=== PATIENT | male | born 1960 | race Caucasian/White ===

== ENCOUNTER 2023-07-10 14:29 | Inpatient (IN) | payer MEDICARE ==
[~2023-07-10] VITALS: Ht 182.9 cm; Wt 95.4 kg
[2023-07-10] VITALS (61 sets, daily range): BP systolic 64–150; BP diastolic 41–94
[2023-07-10 15:50] LABS: BASO% 0.2 % (0-3); EOS% 0.2 % (0-8); HEMATOCRIT 45.4 % (39.0-50.0); HEMOGLOBIN 14.5 g/dl (14.0-18.0); IMMATURE GRANULOCYTES 0.4 % (0.0-5.0); LYMPH% 3.4 % (15-41); MEAN CELL VOLUME 98.1 fL CALC (80.0-100.0); MEAN CORPUSCULAR HGB 31.3 pG CALC (26.0-32.0); MEAN CORPUSCULAR HGB CONC 31.9 g/dL CAL (32.0-36.0); MONO% 2.4 % (2-13); NEUT# 4.72 thou/uL (1.82-7.42); NEUT% 93.4 % (42-76); RED BLOOD COUNT 4.63 mill/uL (4.70-6.10); RED CELL DISTRI WIDTH 14.7 % (11.5-15.5)
[2023-07-10 16:02] LABS: BILIRUBIN, TOTAL 0.9 mg/dL (0.2-1.3); POTASSIUM 3.8 mmol/l (3.5-5.1)
[2023-07-10 16:04] LABS: ALBUMIN 2.9 g/dL (3.2-5.0)
[2023-07-10 16:15] LABS: INTERNATIONAL NORMALIZED RATIO 2.4 RATIO (0.7-1.3); PROTHROMBIN TIME 22.5 SECONDS (9.0-12.5)
[2023-07-10 18:08] LABS: URINE BILIRUBIN - DIPSTICK Negative (NEGATIVE); URINE BLOOD DIPSTICK Small (NEGATIVE); URINE GLUCOSE - DIPSTICK Negative (NEGATIVE); URINE KETONE Negative (NEGATIVE); URINE LEUK ESTERASE Negative (NEGATIVE); URINE NITRITE - DIPSTICK Negative (Negative); URINE PH 5.5 (4.5-8.0); URINE PROTEIN - DIPSTICK 30 mg/dL (NEG-TRACE); URINE SPECIFIC GRAVITY 1.015; URINE UROBILINOGEN - DIPSTICK 0.2 E.U./dL (0.2)
[2023-07-10 18:17] LABS: URINE COLOR Yellow
[2023-07-10 18:39] LABS: URINE AMORPH SEDIMENT FEW hpf (NONE-FER)
[2023-07-10] MEDS ORDERED: CARAFATE1 GM PO (19:20)
[2023-07-10] MEDS ORDERED: KEVZARA200 MG/1.2 (19:20)
[2023-07-10] MEDS ORDERED: WARFARIN SODIUM10 MG PO (19:22)
[2023-07-10] MEDS ORDERED: LOPRESSOR25 M1 PO (19:22)
[2023-07-10] MEDS ORDERED: SERTRALINE50 MG PO (19:22)
[2023-07-10] MEDS ORDERED: WARFARIN SODIUM1 MG PO (19:23)
[2023-07-10] MEDS ORDERED: ATORVASTATIN CA80 MG PO (19:23)
[2023-07-10] MEDS ORDERED: POTASSIUM CHLO20 MEQ PO (19:24)
[2023-07-10] MEDS ORDERED: PANTOPRAZOLE SO40 M1 PO (19:24)
[2023-07-10] MEDS ORDERED: ALDACTONE25 MG PO (19:24)
[2023-07-10] MEDS ORDERED: PREDNISONE10 MG PO (19:26)
[2023-07-10] MEDS ORDERED: BUMETANIDE1 MG PO (19:28)
[2023-07-10] MEDS ORDERED: LASIX 40 MG TAB40 MG PO (19:29)
[2023-07-10] MEDS ORDERED: PHILLIPS MOM311 MG PO (19:30)
[2023-07-10] MEDS ORDERED: MELATONIN3 M1 PO (19:31)
[2023-07-11] VITALS (114 sets, daily range): BP systolic 73–118; BP diastolic 37–78
[2023-07-11 07:01] LABS: BILIRUBIN, TOTAL 0.8 mg/dL (0.2-1.3); CREATININE 1.8 mg/dL (0.7-1.3); MAGNESIUM 1.9 mg/dL (1.6-2.3)
[2023-07-11 07:02] LABS: MEAN CELL VOLUME 97.7 fL CALC (80.0-100.0); MEAN CORPUSCULAR HGB 31.7 pG CALC (26.0-32.0); MEAN CORPUSCULAR HGB CONC 32.4 g/dL CAL (32.0-36.0); RED BLOOD COUNT 3.85 mill/uL (4.70-6.10)
[2023-07-11 07:04] LABS: HEMATOCRIT 37.6 % (39.0-50.0); HEMOGLOBIN 12.2 g/dl (14.0-18.0)
[2023-07-11 07:10] LABS: ALBUMIN 1.9 g/dL (3.2-5.0); POTASSIUM 2.8 mmol/l (3.5-5.1); TOTAL PROTEIN 5.1 g/dL (6.3-8.2)
[2023-07-11 07:13] LABS: PROTHROMBIN TIME 44.6 SECONDS (9.0-12.5)
[2023-07-12] VITALS (74 sets, daily range): BP systolic 80–143; BP diastolic 47–109
[2023-07-12 05:58] LABS: HEMATOCRIT 32.8 % (39.0-50.0); HEMOGLOBIN 10.6 g/dl (14.0-18.0); MEAN CELL VOLUME 98.8 fL CALC (80.0-100.0); MEAN CORPUSCULAR HGB 31.9 pG CALC (26.0-32.0); MEAN CORPUSCULAR HGB CONC 32.3 g/dL CAL (32.0-36.0); RED BLOOD COUNT 3.32 mill/uL (4.70-6.10); RED CELL DISTRI WIDTH 15.3 % (11.5-15.5)
[2023-07-12 06:32] LABS: ALBUMIN 1.7 g/dL (3.2-5.0); CREATININE 1.8 mg/dL (0.7-1.3); POTASSIUM 2.8 mmol/l (3.5-5.1); TOTAL PROTEIN 4.6 g/dL (6.3-8.2)
[2023-07-12 06:39] LABS: INTERNATIONAL NORMALIZED RATIO 12.7 RATIO (0.7-1.3); PROTHROMBIN TIME 113.3 SECONDS (9.0-12.5)
[2023-07-12 06:40] LABS: BILIRUBIN, TOTAL 0.4 mg/dL (0.2-1.3)
[2023-07-12 14:14] LABS: BASO% 0.2 % (0-3); EOS% 6.2 % (0-8); HEMATOCRIT 34.9 % (39.0-50.0); IMMATURE GRANULOCYTES 0.2 % (0.0-5.0); LYMPH% 11.9 % (15-41); MEAN CELL VOLUME 98.6 fL CALC (80.0-100.0); MEAN CORPUSCULAR HGB 31.1 pG CALC (26.0-32.0); MEAN CORPUSCULAR HGB CONC 31.5 g/dL CAL (32.0-36.0); MONO% 10.7 % (2-13); NEUT# 2.85 thou/uL (1.82-7.42); NEUT% 70.8 % (42-76); RED BLOOD COUNT 3.54 mill/uL (4.70-6.10); RED CELL DISTRI WIDTH 15.3 % (11.5-15.5)
[2023-07-12 14:32] LABS: CREATININE 1.6 mg/dL (0.7-1.3); POTASSIUM 3.2 mmol/l (3.5-5.1)
[2023-07-12 14:37] LABS: INTERNATIONAL NORMALIZED RATIO 3.1 RATIO (0.7-1.3); PROTHROMBIN TIME 27.9 SECONDS (9.0-12.5)
== END 2023-07-12 15:00 | disposition short-term general hospital (02) | DRG 871 ==
LOC: ED 14:29 → ED-I 18:30 → ED 18:44 → ICU 07-11 14:40
PROVIDERS: Family Medicine; Nurse Practitioner; Student in an Organized Health Care Education/Training Program; ADMIT Student in an Organized Health Care Education/Training Program; ATTEND Student in an Organized Health Care Education/Training Program
PROC: 05HM33Z Insertion of Infusion Device into Right Internal Jugular Vein, Percutaneous Approach (ICD-10-PCS; principal; 2023-07-10)
PROC: 3E033XZ Introduction of Vasopressor into Peripheral Vein, Percutaneous Approach (ICD-10-PCS; 2023-07-10)
DX: A41.01 Sepsis due to Methicillin susceptible Staphylococcus aureus (principal); I21.4 Non-ST elevation (NSTEMI) myocardial infarction; J18.9 Pneumonia, unspecified organism; R65.21 Severe sepsis with septic shock; I33.0 Acute and subacute infective endocarditis; I42.9 Cardiomyopathy, unspecified; A04.72 Enterocolitis due to Clostridium difficile, not specified as recurrent; N17.9 Acute kidney failure, unspecified; E87.1 Hypo-osmolality and hyponatremia; E87.20 Acidosis, unspecified; I47.20 Ventricular tachycardia, unspecified; I95.9 Hypotension, unspecified; E86.0 Dehydration; I11.0 Hypertensive heart disease with heart failure; I50.9 Heart failure, unspecified; I25.10 Atherosclerotic heart disease of native coronary artery without angina pectoris; K76.9 Liver disease, unspecified; R79.1 Abnormal coagulation profile; E86.9 Volume depletion, unspecified; E87.6 Hypokalemia; I49.3 Ventricular premature depolarization; E83.51 Hypocalcemia; M06.9 Rheumatoid arthritis, unspecified; T45.515A Adverse effect of anticoagulants, initial encounter; Z79.01 Long term (current) use of anticoagulants; Z95.1 Presence of aortocoronary bypass graft; Z95.2 Presence of prosthetic heart valve; Z95.0 Presence of cardiac pacemaker; Z20.822 Contact with and (suspected) exposure to COVID-19
CPT/HCPCS: J0692; Q9967; S0164